=== PATIENT | male | born 1965 | race Caucasian/White ===

== ENCOUNTER → 2022-01-16 | Outpatient (CLI) | payer BC ==
[2022-01-16 10:14] LABS: HEMOGLOBIN 16.7 gm/dl (14.0-17.5); RED BLOOD COUNT 5.31 M/UL (4.20-5.50); WHITE BLOOD COUNT 5.7 K/UL (4.5-11.0)
[2022-01-16 10:31] LABS: BUN/CREATININE RATIO 18 (0-10); GAMMA GLUTAMYL TRANSPEPTIDASE 148 U/L (7-64)
== END ==
LOC: LAB 09:49
PROVIDERS: Colon & Rectal Surgery
DX: Z87.19 Personal history of other diseases of the digestive system (principal)
CPT/HCPCS: 80053; 82607; 82652; 82746; 82977; 83036; 85027

== ENCOUNTER → 2022-03-05 | Outpatient (CLI) | payer BC ==
[2022-03-06 09:13] LABS: CERULOPLASMIN 26.6 mg/dL (16.0-31.0); HBSAG SCREEN Negative (Negative); HCV ANTIBODY 0.1 (0.0-0.9); HEPATITIS B SURF AB QUANT <3.1 mIU/mL (Immunity>9.9)
[2022-03-06 14:15] LABS: ACTIN (SMOOTH MUSCLE) ANTIBODY 3 Units (0-19); MITOCHONDRIAL (M2) ANTIBODY <20.0 Units (0.0-20.0)
== END ==
LOC: LAB 10:46
PROVIDERS: Internal Medicine Gastroenterology
DX: K76.0 Fatty (change of) liver, not elsewhere classified (principal)
CPT/HCPCS: 36415; 80061; 82103; 82104; 82390; 82728; 83036; 83516; 83540; 83550; 86038; 86317; 86708; 86803; 87340